=== PATIENT | male | born 1990 | race Caucasian/White ===

== ENCOUNTER 2019-09-25 13:58 | Inpatient (IN) | payer BC, MEDICAID ==
[~2019-09-25] VITALS: Ht 190.5 cm; Wt 135.8 kg
[2019-09-25] MEDS ORDERED: LORazepam 2 MG/ML, 1ML ONE ×2 (14:21→19:47)
[2019-09-25] MEDS: LORazepam 2 MG/ML, 1ML IVPush PRN ×2 (14:27→19:52)
--- NOTE | 2019-09-25 14:28 | NUR ---
IV ESTABLISHED AND PT MEDICATED WITH ATIVAN, IVF INFUSING. LAB AT BEDSIDE. CALL LIGHT WITHIN REACH. WILL RECHECK PT IN 10 MIN FOR SANDRO AND ADMINISTER MORE MEDICATION IF NEEDED.
[2019-09-25] MEDS ORDERED: SODIUM CHLORIDE FLUSH 10ML SYR IVF ONE (14:30)
[2019-09-25] MEDS ORDERED: THIAMINE 200 MG in SODIUM CHLORIDE 0.9% 50 ML IV ONE (14:30)
[2019-09-25] MEDS ORDERED: SODIUM CHLORIDE 0.9% 1,000ML IVBOLUS ONE (14:30)
[2019-09-25 14:44] LABS: INTERNATIONAL NORMALIZED RATIO 1.22 (0.93-1.1); PROTHROMBIN TIME 12.7 Seconds (9.6-11.5)
[2019-09-25 14:47] LABS: ALANINE AMINOTRANSFERASE 81 U/L (12-78); ALBUMIN 3.1 g/dL (3.4-5.0); ANION GAP 10 mmol/L (5-15); CALCIUM 7.8 mg/dL (8.5-10.1); CHLORIDE 101 mmol/L (98-107)
[2019-09-25 14:50] LABS: ALKALINE PHOSPHATASE 268 U/L (45-117); BILIRUBIN,TOTAL 3.8 mg/dL (0.2-1.0); CREATININE 0.65 mg/dL (0.7-1.3); TOTAL PROTEIN 7.9 g/dL (6.4-8.2)
[2019-09-25 14:51] LABS: ACETONE, SERUM Negative (Negative)
--- NOTE | 2019-09-25 14:55 | NUR ---
TASK RN: PT RESTING ON ARTIE. KAREY. VSS. MEDICATED PER NOV. SZ PRECAUTIONS APPLIED.
[2019-09-25 15:19] LABS: MEAN CORPUSCULAR HEMOGLOBIN 39.4 pg (27.5-34.5); MEAN CORPUSCULAR HGB CONC 33.5 g/dL (33.2-36.2); MEAN CORPUSCULAR VOLUME 117.6 fL (81-97); MEAN PLATELET VOLUME 7.3 fL (7.4-10.4); PLATELET COUNT 79 x10^3/uL (130-400); RED BLOOD COUNT 4.02 x10^6/uL (4.38-5.82)
[2019-09-25 15:40] LABS: MD YES
[2019-09-25 15:43] LABS: BAND#(MANUAL) 0.31 x10^3/uL; BANDS%(MANUAL) 3 % (0-7); EOS% (MANUAL) 1 % (1-7); LYMPH#(MANUAL) 0.94 x10^3/uL (1-3.4); LYMPHS% (MANUAL) 9 % (22-44); MONOS#(MANUAL) 0.42 x10^3/uL (0.3-2.7); MONOS% (MANUAL) 4 % (2-9); SEG#(MANUAL) 8.63 x10^3/uL (1.8-6.8); SEGS% (MANUAL) 83 % (42-75)
[2019-09-25 15:44] LABS: <RBC MORPHOLOGY> NORMAL
[2019-09-25 15:46] LABS: TARGET CELLS 1+
[2019-09-25 15:47] LABS: <PLATELET ESTIMATE> DECREASED; <PLT MORPHOLOGY> NORMAL PLT MORPH
--- NOTE | 2019-09-25 15:49 | NUR ---
PT SLEEPING IN RHALLS ON 4L NC, EQUAL CHEST RISE AND FALL. ORDERD BANANA BAG. PT TO BE ADMITTED.
[2019-09-25] MEDS ORDERED: MAGNESIUM SULFATE 3 GM, THIAMINE 100 MG, FOLIC ACID 1 MG, MVI ADULT 10 ML in SODIUM CHL... IV ONE (16:00)
--- NOTE | 2019-09-25 16:50 | NUR ---
PER DR SORIANO CANCEL DUPLICATE ORDER OF THIAMINE AND BANANA BAG, HOLD LIBRIUM UNTIL PT LESS LETHARGIC. PRN ATIVAN ORDERED FOR SANDRO.
[2019-09-25] MEDS ORDERED: DOCUSATE 100 MG CAPSULE PO PRN (17:00)
[2019-09-25] MEDS: NICOTINE 14MG/24 HR PATCH.TD24 TD SCH (17:00)
[2019-09-25] MEDS ORDERED: LORazepam 2 MG/ML, 1ML IV PRN ×2 (17:00)
[2019-09-25] MEDS ORDERED: POLYETHYLENE GLYCOL 17 GM PACKET PO PRN (17:00)
[2019-09-25] MEDS ORDERED: LORazepam 0.5MG TABLET PO PRN (17:00)
[2019-09-25] MEDS ORDERED: LORazepam 1MG TABLET PO PRN ×4 (17:00)
[2019-09-25] MEDS ORDERED: BISACODYL 10 MG SUPP PR PRN (17:00)
[2019-09-25] MEDS ORDERED: THIAMINE 200 MG, MVI ADULT 10 ML, FOLIC ACID 1 MG in D5%-0.9% NACL 1,000 ML IV SCH (17:00)
[2019-09-25] MEDS ORDERED: CHLORDIAZEPOXIDE 25 MG CAPSULE PO SCH ×2 (17:00)
--- NOTE | 2019-09-25 17:54 | NUR ---
PT RESTING IN GURNEY, STILL SLEEPING. AWAITING BED ASSIGNMENT. PT ON MONITOR, CALL LIGHT WITHIN REACH.
--- NOTE | 2019-09-25 18:59 | NUR ---
REPORT FROM RAYRAY MORGAN
[2019-09-25] MEDS ORDERED: PROMETHAZINE 25 MG/ML, 1ML ONE (19:23)
[2019-09-25] MEDS: PROMETHAZINE 25 MG/ML, 1ML IM PRN (19:26)
--- NOTE | 2019-09-25 19:32 | NUR ---
PT REPORTING NAUSEA, AND DRY HEAVING. PT MEDICATED PER MAR
--- NOTE | 2019-09-25 19:52 | NUR ---
PT STS FEELING LIKE HE IS STARTING TO WITHDRAWL MORE, FEELING SHAKEY AND A HEADACHE WITH NAUSEA. PT MEDICATED PER MAR. VSS
[2019-09-25 20:43] VITALS: BP 129/77
[2019-09-25] MEDS: PANTOPRAZOLE 40 MG IV IVPush SCH (21:26)
[2019-09-25] MEDS: LORazepam 2 MG/ML, 1ML IV PRN (21:26)
[2019-09-25] MEDS: CHLORDIAZEPOXIDE 25 MG CAPSULE PO SCH (22:54)
[2019-09-26 00:06] VITALS: BP 138/79
[2019-09-26] MEDS: LORazepam 2 MG/ML, 1ML IV PRN ×11 (00:56→23:01)
[2019-09-26] MEDS: PROMETHAZINE 25 MG/ML, 1ML IM PRN ×3 (03:52→11:57)
[2019-09-26] MEDS: CHLORDIAZEPOXIDE 25 MG CAPSULE PO SCH ×4 (05:20→20:03)
[2019-09-26 05:57] LABS: MD YES; MEAN CORPUSCULAR HEMOGLOBIN 40.3 pg (27.5-34.5); MEAN CORPUSCULAR HGB CONC 33.8 g/dL (33.2-36.2); MEAN CORPUSCULAR VOLUME 119.4 fL (81-97); MEAN PLATELET VOLUME 7.3 fL (7.4-10.4); PLATELET COUNT 64 x10^3/uL (130-400); RED BLOOD COUNT 3.63 x10^6/uL (4.38-5.82); RED CELL DISTRIBUTION WIDTH 16.2 % (9.4-14.8)
[2019-09-26 05:59] LABS: ANISOCYTOSIS 1+; BANDS%(MANUAL) 6 % (0-7); EOS#(MANUAL) 0.12 x10^3/uL (0.0-0.4); EOS% (MANUAL) 1 % (1-7); LYMPHS% (MANUAL) 6 % (22-44); MONOS#(MANUAL) 0.46 x10^3/uL (0.3-2.7); MONOS% (MANUAL) 4 % (2-9); SEG#(MANUAL) 9.63 x10^3/uL (1.8-6.8); SEGS% (MANUAL) 83 % (42-75)
[2019-09-26 06:00] LABS: <PLATELET ESTIMATE> DECREASED; <PLT MORPHOLOGY> NORMAL PLT MORPH
[2019-09-26 06:41] LABS: ALANINE AMINOTRANSFERASE 68 U/L (12-78); ANION GAP 10 mmol/L (5-15); CALCIUM 7.9 mg/dL (8.5-10.1); CHLORIDE 102 mmol/L (98-107); CREATININE 0.63 mg/dL (0.7-1.3)
[2019-09-26 07:08] LABS: ALKALINE PHOSPHATASE 229 U/L (45-117); BILIRUBIN,TOTAL 4.3 mg/dL (0.2-1.0); TOTAL PROTEIN 7.4 g/dL (6.4-8.2)
[2019-09-26] MEDS ORDERED: CALCIUM GLUCONATE 4.6 MEQ in SODIUM CHLORIDE 0.9% 50 ML IV ONE (07:30)
[2019-09-26] MEDS: PANTOPRAZOLE 40 MG IV IVPush SCH ×2 (08:02→22:00)
[2019-09-26 08:37] VITALS: BP 171/108
[2019-09-26 09:11] VITALS: BP 147/91
[2019-09-26] MEDS: THIAMINE 200 MG, MVI ADULT 10 ML, FOLIC ACID 1 MG in D5%-0.9% NACL 1,000 ML IV SCH (10:36)
[2019-09-26 14:21] VITALS: BP 143/89
[2019-09-26] MEDS: NICOTINE 14MG/24 HR PATCH.TD24 TD SCH (16:00)
[2019-09-26 19:48] VITALS: BP 150/92
[2019-09-27] MEDS: LORazepam 2 MG/ML, 1ML IV PRN ×6 (00:50→12:19)
[2019-09-27 01:16] VITALS: BP 130/82
[2019-09-27] MEDS: CHLORDIAZEPOXIDE 25 MG CAPSULE PO SCH ×4 (01:46→20:03)
[2019-09-27] MEDS ORDERED: CHLORDIAZEPOXIDE 25 MG CAPSULE PO PRN (03:30)
[2019-09-27 06:09] LABS: MEAN CORPUSCULAR HEMOGLOBIN 40.1 pg (27.5-34.5); MEAN CORPUSCULAR HGB CONC 34.1 g/dL (33.2-36.2); MEAN CORPUSCULAR VOLUME 117.7 fL (81-97); MEAN PLATELET VOLUME 7.9 fL (7.4-10.4); PLATELET COUNT 54 x10^3/uL (130-400); RED CELL DISTRIBUTION WIDTH 16.3 % (9.4-14.8)
[2019-09-27 06:18] LABS: ALBUMIN 3.1 g/dL (3.4-5.0); ANION GAP 9 mmol/L (5-15); CALCIUM 8.2 mg/dL (8.5-10.1); CHLORIDE 104 mmol/L (98-107); CREATININE 0.83 mg/dL (0.7-1.3)
[2019-09-27 06:20] VITALS: BP 163/93
[2019-09-27 06:47] LABS: BASOPHILS # (AUTO) 0.01 x10^3/uL (0-0.1); BASOPHILS % (AUTO) 0 % (0-1); EOSINOPHILS # (AUTO) 0.07 x10^3/uL (0-0.4); EOSINOPHILS % (AUTO) 1 % (1-7); LYMPHOCYTES # (AUTO) 0.55 x10^3/uL (1-3.4); LYMPHOCYTES % (AUTO) 5 % (22-44); MD SCAN; MONOCYTES # (AUTO) 0.55 x10^3/uL (0.2-0.8); MONOCYTES % (AUTO) 5 % (2-9); NEUTROPHILS # (AUTO) 9.11 x10^3/uL (1.8-6.8); NEUTROPHILS % (AUTO) 89 % (42-75)
[2019-09-27] MEDS ORDERED: POTASSIUM PHOSPHATE 44 MEQ in SODIUM CHLORIDE 0.9% 500 ML IV ONE (07:00)
[2019-09-27 07:47] LABS: FREE T4 (FREE THYROXINE) 1.83 ng/dL (0.76-1.46)
[2019-09-27] MEDS: PANTOPRAZOLE 40 MG IV IVPush SCH ×2 (08:21→21:54)
[2019-09-27] MEDS: CALCIUM/VITAMIN D3 250-125 TABLET PO SCH ×2 (08:21→21:54)
[2019-09-27] MEDS: NICOTINE 14MG/24 HR PATCH.TD24 TD SCH (08:22)
[2019-09-27 11:58] VITALS: BP 168/103
[2019-09-27] MEDS: THIAMINE 200 MG, MVI ADULT 10 ML, FOLIC ACID 1 MG in D5%-0.9% NACL 1,000 ML IV SCH (17:29)
[2019-09-27 19:42] VITALS: BP 139/91
[2019-09-28 01:00] VITALS: BP 145/90
[2019-09-28] MEDS: CHLORDIAZEPOXIDE 25 MG CAPSULE PO SCH ×3 (01:48→14:09)
[2019-09-28] MEDS: LORazepam 2 MG/ML, 1ML IV PRN (05:24)
[2019-09-28 06:16] LABS: CHLORIDE 100 mmol/L (98-107)
[2019-09-28 06:17] LABS: MEAN CORPUSCULAR HEMOGLOBIN 40.7 pg (27.5-34.5); MEAN CORPUSCULAR HGB CONC 34.5 g/dL (33.2-36.2); MEAN CORPUSCULAR VOLUME 117.9 fL (81-97); MEAN PLATELET VOLUME 8.8 fL (7.4-10.4); PLATELET COUNT 59 x10^3/uL (130-400); RED BLOOD COUNT 3.57 x10^6/uL (4.38-5.82); RED CELL DISTRIBUTION WIDTH 15.9 % (9.4-14.8)
[2019-09-28 06:24] LABS: ANION GAP 11 mmol/L (5-15); CALCIUM 8.5 mg/dL (8.5-10.1)
[2019-09-28 06:25] VITALS: BP 162/98
[2019-09-28 06:27] VITALS: BP 152/107
[2019-09-28 06:46] LABS: BASOPHILS # (AUTO) 0.02 x10^3/uL (0-0.1); BASOPHILS % (AUTO) 0 % (0-1); EOSINOPHILS # (AUTO) 0.19 x10^3/uL (0-0.4); EOSINOPHILS % (AUTO) 2 % (1-7); LYMPHOCYTES % (AUTO) 6 % (22-44); MD SCAN; MONOCYTES # (AUTO) 0.53 x10^3/uL (0.2-0.8); MONOCYTES % (AUTO) 5 % (2-9); NEUTROPHILS % (AUTO) 87 % (42-75)
[2019-09-28] MEDS: CALCIUM/VITAMIN D3 250-125 TABLET PO SCH (07:38)
[2019-09-28] MEDS: PANTOPRAZOLE 40 MG IV IVPush SCH (07:39)
[2019-09-28] MEDS: NICOTINE 14MG/24 HR PATCH.TD24 TD SCH (07:39)
[2019-09-28] MEDS: PROMETHAZINE 25 MG/ML, 1ML IM PRN (07:39)
[2019-09-28] MEDS ORDERED: CHLORHEXIDINE 15 ML UDC MM SCH (10:00)
[2019-09-28 12:40] VITALS: BP 140/89
[2019-09-28] MEDS ORDERED: CHLO25CA9 PO (15:01)
[2019-09-28] MEDS ORDERED: GABA100C PO (15:01)
== END 2019-09-28 17:20 | disposition home or self-care (01) | DRG 433 ==
LOC: ED 15:46 → EDIP 15:47 → SUATTDRO 16:25 → ED 16:26 → 4EST 20:39
PROVIDERS: ADMIT Internal Medicine; ATTEND Family Medicine
DX: K70.10 Alcoholic hepatitis without ascites (principal); F10.231 Alcohol dependence with withdrawal delirium; F10.229 Alcohol dependence with intoxication, unspecified; D69.6 Thrombocytopenia, unspecified; D75.89 Other specified diseases of blood and blood-forming organs; E83.42 Hypomagnesemia; E83.51 Hypocalcemia; F12.90 Cannabis use, unspecified, uncomplicated; F17.210 Nicotine dependence, cigarettes, uncomplicated; K05.10 Chronic gingivitis, plaque induced; R94.31 Abnormal electrocardiogram [ECG] [EKG]; Z83.3 Family history of diabetes mellitus; Z82.49 Family history of ischemic heart disease and other diseases of the circulatory system
CPT/HCPCS: 36415; 96365; 96366; 96367; 99285; J7042; 71045; 80053; 80069; 80307; 82010; 82607; 83690; 83735; 84100; 84439; 84443; 84481; 85014; 85018; 85025; 85610; 93005; 95819; G0378; J0610; J2550; J3411; J3475; C9113; J2060; J7030; J7040

== ENCOUNTER 2019-10-12 18:23 | Inpatient (IN) | payer MEDICAID ==
[~2019-10-12] VITALS: Ht 190.5 cm; Wt 150.9 kg
[~2019-10-12 18:23] MED LIST: CHLO25CA9 PO; GABA100C PO
[2019-10-12] MEDS ORDERED: SODIUM CHLORIDE 0.9% 1,000ML IVBOLUS ONE (18:30)
[2019-10-12] MEDS ORDERED: SODIUM CHLORIDE FLUSH 10ML SYR IVF ONE (18:30)
[2019-10-12] MEDS ORDERED: THIAMINE 100 MG in SODIUM CHLORIDE 0.9% 50 ML IVPB ONE (18:30)
[2019-10-12] MEDS ORDERED: SODIUM CHLORIDE 0.9% 1,000 ML IV ONE (18:30)
[2019-10-12 18:45] LABS: MEAN CORPUSCULAR HEMOGLOBIN 38.7 pg (27.5-34.5); MEAN CORPUSCULAR HGB CONC 35.2 g/dL (33.2-36.2); MEAN CORPUSCULAR VOLUME 110.1 fL (81-97); MEAN PLATELET VOLUME 6.8 fL (7.4-10.4); PLATELET COUNT 291 x10^3/uL (130-400); RED BLOOD COUNT 3.52 x10^6/uL (4.38-5.82)
[2019-10-12 18:51] LABS: INTERNATIONAL NORMALIZED RATIO 2.44 (0.93-1.1); PROTHROMBIN TIME 26.1 Seconds (9.6-11.5)
[2019-10-12] MEDS ORDERED: PIPERACILLIN/TAZO/PMX 3.375GM 50 ML IVPB ONE (19:00)
[2019-10-12] MEDS ORDERED: CEFTRIAXONE PMX 1GM/50ML 50 ML IVPB ONE (19:00)
[2019-10-12 19:01] LABS: MD YES
[2019-10-12 19:04] LABS: ANISOCYTOSIS 1+; BAND#(MANUAL) 10.24 x10^3/uL; BANDS%(MANUAL) 23 % (0-7); LYMPH#(MANUAL) 0.89 x10^3/uL (1-3.4); LYMPHS% (MANUAL) 2 % (22-44); MONOS#(MANUAL) 2.23 x10^3/uL (0.3-2.7); MONOS% (MANUAL) 5 % (2-9); SEG#(MANUAL) 31.15 x10^3/uL (1.8-6.8); SEGS% (MANUAL) 70 % (42-75); TARGET CELLS 1+
[2019-10-12 19:05] LABS: <PLATELET ESTIMATE> ADEQUATE; <PLT MORPHOLOGY> NORMAL PLT MORPH; TOXIC GRAN 1+
[2019-10-12] MEDS ORDERED: PIPERACILLIN/TAZO/PMX 3.375GM 50 ML ONE (19:18)
[2019-10-12] MEDS ORDERED: CEFTRIAXONE PMX 1GM/50ML 50 ML ONE (19:18)
[2019-10-12 19:19] LABS: ALANINE AMINOTRANSFERASE 59 U/L (12-78); ALBUMIN 1.8 g/dL (3.4-5.0); ANION GAP 16 mmol/L (5-15); CALCIUM 7.6 mg/dL (8.5-10.1); CHLORIDE 71 mmol/L (98-107)
[2019-10-12 19:30] LABS: ALKALINE PHOSPHATASE 229 U/L (45-117)
--- NOTE | 2019-10-12 19:30 | NUR ---
Note undone in EDM - 10/12/19 at 1932 by ESPERANZA PT PRESENTS TO THE ER WITH PRONOUNCED JAUNDICE, WEAKNESS, LETHARGY, BILATERAL LOWER EDEMA, AND FEELS SHORT OF BREATH. EJ STARTED, LABS DRAWN AND SENT. ERP AT BEDSIDE. KEILA, PT CALLED FOR UPDATED. PT VERBALLY RELEASED HER FOR INFORMATION. KEILA - [phone]
[2019-10-12 19:34] LABS: CREATININE 1.86 mg/dL (0.7-1.3)
[2019-10-12 19:41] LABS: BILIRUBIN,TOTAL 30.4 mg/dL (0.2-1.0)
[2019-10-12 19:42] LABS: TOTAL PROTEIN 5.4 g/dL (6.4-8.2)
[2019-10-12] MEDS ORDERED: SODIUM CHLORIDE FLUSH 10ML SYR IVF PRN (20:00)
--- NOTE | 2019-10-12 20:40 | NUR ---
REPORT CALLED TO RECEIVING RN.
--- NOTE | 2019-10-12 20:51 | NUR ---
PT DISLODGED HUB OF EJ LINE, LOST APPROX 50ML OF BLOOD. NEW HUB SECURED, TEGADERM REINFORCED AND SECURED WITH NO STING AND EXTRA TAPE. PT TRANSPORTED OFF FLOOR AT THIS TIME.
[2019-10-12] MEDS ORDERED: GLUCAGON 1 MG IM PRN (21:00)
[2019-10-12] MEDS ORDERED: DEXTROSE 4 GM TAB.CHEW PO PRN (21:00)
[2019-10-12] MEDS ORDERED: DEXTROSE 50%, 50ML SYRINGE IVPush PRN (21:00)
[2019-10-12] MEDS ORDERED: ONDANSETRON 2MG/ML, 2ML IVPush PRN (21:00)
[2019-10-12] MEDS ORDERED: PHARMACY MAY ADJ FOR RENAL FX MC PRN (21:00)
[2019-10-12] MEDS ORDERED: SODIUM CHLORIDE 3% 500 ML IV PRN ×2 (21:00→23:45)
[2019-10-12] MEDS ORDERED: morphine SULFATE 10 MG/ML, 1ML IVPush PRN (21:00)
[2019-10-12] MEDS ORDERED: THIAMINE 100 MG in SODIUM CHLORIDE 0.9% 50 ML IV SCH (21:00)
[2019-10-12] MEDS ORDERED: VANCOMYCIN PER PHARMACY MC PRN (21:00)
[2019-10-12] MEDS ORDERED: PHARMACOKINETIC CONSULTATION MC ONE (22:00)
[2019-10-12] MEDS ORDERED: PHARMACOKINETIC MONITORING MC PRN (22:00)
[2019-10-12 22:12] LABS: MICROSCOPIC INDICATED
[2019-10-12 22:21] LABS: AMPHETAMINE SCREEN, URINE Negative (Negative); BARBITURATE SCREEN, URINE Negative (Negative); BENZODIAZEPINE SCREEN, URINE Positive (Negative); CANNABINOID SCREEN, URINE Positive (Negative); COCAINE SCREEN, URINE Negative (Negative); CULTURE INDICATED? NO; METHADONE SCREEN, URINE Negative (Negative); OPIATE SCREEN, URINE Negative (Negative); POTASSIUM,URINE RANDOM 37 mmol/L; SODIUM,URINE RANDOM 6 mmol/L
[2019-10-12 22:22] LABS: CHLORIDE,URINE RANDOM < 10 mmol/L
[2019-10-12] MEDS: PANTOPRAZOLE 40 MG IV IVPush SCH (22:30)
[2019-10-12] MEDS: SODIUM CHLORIDE FLUSH 10ML SYR IVF SCH (22:30)
[2019-10-12] MEDS: VANCOMYCIN 2,200 MG in SODIUM CHLORIDE 0.9% 500 ML IV SCH (22:31)
[2019-10-12 23:17] LABS: ANION GAP 11 mmol/L (5-15); CALCIUM 7.8 mg/dL (8.5-10.1); CHLORIDE 74 mmol/L (98-107)
[2019-10-12 23:24] LABS: CREATININE 2.05 mg/dL (0.7-1.3)
[2019-10-13] MEDS ORDERED: CALCIUM GLUCONATE 9.2 MEQ in SODIUM CHLORIDE 0.9% 100 ML IV ONE
[2019-10-13] MEDS: LACTULOSE 10 GM/15 ML UDC PO SCH ×4 (00:43→21:47)
[2019-10-13] MEDS: PIPERACILLIN/TAZO/PMX 3.375GM 50 ML IV SCH ×4 (02:13→23:08)
[2019-10-13 04:00] VITALS: BP 130/75
[2019-10-13 06:22] LABS: MEAN CORPUSCULAR HEMOGLOBIN 38.7 pg (27.5-34.5); MEAN CORPUSCULAR HGB CONC 35.1 g/dL (33.2-36.2); MEAN CORPUSCULAR VOLUME 110.5 fL (81-97); MEAN PLATELET VOLUME 6.9 fL (7.4-10.4); PLATELET COUNT 226 x10^3/uL (130-400); RED BLOOD COUNT 3.44 x10^6/uL (4.38-5.82)
[2019-10-13 06:34] LABS: ALBUMIN 1.8 g/dL (3.4-5.0); ANION GAP 14 mmol/L (5-15); CALCIUM 7.5 mg/dL (8.5-10.1); CHLORIDE 77 mmol/L (98-107)
[2019-10-13 06:36] LABS: MD YES
[2019-10-13 06:38] LABS: LYMPH#(MANUAL) 0.44 x10^3/uL (1-3.4); LYMPHS% (MANUAL) 1 % (22-44); METAMYELOCYTES# (MANUAL) 0.44 x10^3/uL (0-0); METAMYELOCYTES% (MANUAL) 1 % (0-1); MONOS#(MANUAL) 1.76 x10^3/uL (0.3-2.7); MONOS% (MANUAL) 4 % (2-9)
[2019-10-13 06:40] LABS: BANDS%(MANUAL) 13 % (0-7)
[2019-10-13 06:41] LABS: BAND#(MANUAL) 5.73 x10^3/uL; SEGS% (MANUAL) 81 % (42-75)
[2019-10-13 06:43] LABS: <PLATELET ESTIMATE> ADEQUATE; <PLT MORPHOLOGY> NORMAL PLT MORPH; PMNS WITH VACUOLES 1+; TOXIC GRAN 2+
[2019-10-13 06:44] LABS: TARGET CELLS 1+
[2019-10-13 06:46] LABS: ALANINE AMINOTRANSFERASE 60 U/L (12-78); ALKALINE PHOSPHATASE 216 U/L (45-117)
[2019-10-13 06:49] LABS: INTERNATIONAL NORMALIZED RATIO 2.2 (0.93-1.1); PROTHROMBIN TIME 23.5 Seconds (9.6-11.5)
[2019-10-13 06:49] LABS: CREATININE 2.06 mg/dL (0.7-1.3); TOTAL PROTEIN 5.1 g/dL (6.4-8.2)
[2019-10-13 06:50] LABS: BILIRUBIN,TOTAL 30.6 mg/dL (0.2-1.0)
[2019-10-13] MEDS: ALBUMIN HUMAN 25% 100 ML IV SCH ×3 (07:51→23:45)
[2019-10-13] MEDS: SODIUM CHLORIDE FLUSH 10ML SYR IVF SCH ×2 (07:54→21:41)
[2019-10-13] MEDS: PANTOPRAZOLE 40 MG IV IVPush SCH ×2 (07:54→17:13)
[2019-10-13] MEDS ORDERED: SODIUM CHLORIDE 3% 500 ML IV PRN (11:00)
[2019-10-13 13:42] LABS: ANA SCREEN POSITIVE (Negative)
[2019-10-13 13:43] LABS: ANTI-NUCLEAR ANTIBODY PATTERN SPECKLED
[2019-10-13 13:49] LABS: OSMOLALITY,URINE 288 mOsm/kg (500-850)
[2019-10-13] MEDS: VANCOMYCIN 2,200 MG in SODIUM CHLORIDE 0.9% 500 ML IV SCH (17:14)
[2019-10-13] MEDS: THIAMINE 200 MG in SODIUM CHLORIDE 0.9% 50 ML IV SCH (21:41)
[2019-10-14 04:00] VITALS: BP 113/62
[2019-10-14] MEDS: PIPERACILLIN/TAZO/PMX 3.375GM 50 ML IV SCH ×4 (04:35→22:35)
[2019-10-14 04:48] LABS: MEAN CORPUSCULAR HEMOGLOBIN 38.7 pg (27.5-34.5); MEAN CORPUSCULAR HGB CONC 34.9 g/dL (33.2-36.2); MEAN CORPUSCULAR VOLUME 111.1 fL (81-97); MEAN PLATELET VOLUME 7.3 fL (7.4-10.4); PLATELET COUNT 199 x10^3/uL (130-400); RED BLOOD COUNT 3.34 x10^6/uL (4.38-5.82); RED CELL DISTRIBUTION WIDTH 16.5 % (9.4-14.8)
[2019-10-14 04:57] LABS: INTERNATIONAL NORMALIZED RATIO 2.3 (0.93-1.1); PROTHROMBIN TIME 24.6 Seconds (9.6-11.5)
[2019-10-14 05:01] LABS: ALBUMIN 2.3 g/dL (3.4-5.0); CALCIUM 7.5 mg/dL (8.5-10.1); CHLORIDE 81 mmol/L (98-107)
[2019-10-14 05:07] LABS: ANION GAP 13 mmol/L (5-15)
[2019-10-14 05:13] LABS: ALANINE AMINOTRANSFERASE 60 U/L (12-78); ALKALINE PHOSPHATASE 192 U/L (45-117)
[2019-10-14 05:17] LABS: TOTAL PROTEIN 5.2 g/dL (6.4-8.2)
[2019-10-14 05:20] LABS: BILIRUBIN,TOTAL 32.7 mg/dL (0.2-1.0)
[2019-10-14 05:31] LABS: MD YES
[2019-10-14 05:33] LABS: <PLATELET ESTIMATE> ADEQUATE; <PLT MORPHOLOGY> NORMAL PLT MORPH; BAND#(MANUAL) 0.85 x10^3/uL; BANDS%(MANUAL) 2 % (0-7); EOS#(MANUAL) 0.42 x10^3/uL (0.0-0.4); EOS% (MANUAL) 1 % (1-7); LYMPH#(MANUAL) 0.42 x10^3/uL (1-3.4); LYMPHS% (MANUAL) 1 % (22-44); MONOS#(MANUAL) 2.54 x10^3/uL (0.3-2.7); MONOS% (MANUAL) 6 % (2-9); SEG#(MANUAL) 38.16 x10^3/uL (1.8-6.8); SEGS% (MANUAL) 90 % (42-75)
[2019-10-14] MEDS ORDERED: FUROSEMIDE 40 MG/4 ML IV ONE (08:30)
[2019-10-14] MEDS ORDERED: SODIUM CHLORIDE 3% 500 ML IV PRN ×3 (08:30→14:30)
[2019-10-14] MEDS: PANTOPRAZOLE 40 MG IV IVPush SCH ×2 (08:47→16:07)
[2019-10-14] MEDS: ALBUMIN HUMAN 25% 100 ML IV SCH ×3 (08:47→23:25)
[2019-10-14] MEDS: SODIUM CHLORIDE FLUSH 10ML SYR IVF SCH ×2 (08:48→21:12)
[2019-10-14] MEDS: LACTULOSE 10 GM/15 ML UDC PO SCH ×3 (09:00→21:00)
[2019-10-14] MEDS: PHYTONADIONE 10 MG/ML, 1ML SQ SCH (09:00)
--- NOTE | 2019-10-14 11:18 | NUR ---
TF GOAL if needed: OSMOLITE 1.2 @ 85ML/HR
[2019-10-14 13:57] LABS: OCCULT BLOOD POSITIVE (NEGATIVE)
[2019-10-14] MEDS: THIAMINE 200 MG in SODIUM CHLORIDE 0.9% 50 ML IV SCH (21:13)
[2019-10-15] MEDS ORDERED: SODIUM CHLORIDE 3% 500 ML IV PRN (03:00)
[2019-10-15 04:00] VITALS: BP 135/64
[2019-10-15] MEDS: PIPERACILLIN/TAZO/PMX 3.375GM 50 ML IV SCH ×4 (04:47→22:16)
[2019-10-15] MEDS ORDERED: POTASSIUM CHLORIDE 40 MEQ in SODIUM CHLORIDE 0.9% 100 ML IV ONE (07:00)
[2019-10-15 07:56] LABS: MEAN CORPUSCULAR HEMOGLOBIN 38.3 pg (27.5-34.5); MEAN CORPUSCULAR HGB CONC 34.8 g/dL (33.2-36.2); MEAN CORPUSCULAR VOLUME 109.9 fL (81-97); PLATELET COUNT 161 x10^3/uL (130-400); RED BLOOD COUNT 3.16 x10^6/uL (4.38-5.82); RED CELL DISTRIBUTION WIDTH 15.9 % (9.4-14.8)
[2019-10-15 08:12] LABS: ALBUMIN 2.5 g/dL (3.4-5.0); ANION GAP 15 mmol/L (5-15); CALCIUM 7.9 mg/dL (8.5-10.1); CHLORIDE 87 mmol/L (98-107)
[2019-10-15] MEDS: ALBUMIN HUMAN 25% 100 ML IV SCH ×2 (08:21→15:50)
[2019-10-15 08:24] LABS: ALANINE AMINOTRANSFERASE 55 U/L (12-78); ALKALINE PHOSPHATASE 168 U/L (45-117)
[2019-10-15] MEDS ORDERED: FUROSEMIDE 40 MG/4 ML ONE (08:28)
[2019-10-15 08:30] LABS: INTERNATIONAL NORMALIZED RATIO 1.88 (0.93-1.1); PROTHROMBIN TIME 20.1 Seconds (9.6-11.5)
[2019-10-15] MEDS ORDERED: FUROSEMIDE 100 MG/10 ML IV ONE (08:30)
[2019-10-15] MEDS: PANTOPRAZOLE 40 MG IV IVPush SCH ×2 (08:31→17:07)
[2019-10-15] MEDS: SODIUM CHLORIDE FLUSH 10ML SYR IVF SCH ×2 (08:32→21:16)
[2019-10-15] MEDS: LACTULOSE 10 GM/15 ML UDC PO SCH ×3 (08:32→21:16)
[2019-10-15] MEDS: PHYTONADIONE 10 MG/ML, 1ML SQ SCH (08:33)
[2019-10-15 08:38] LABS: CREATININE 3.57 mg/dL (0.7-1.3)
[2019-10-15 08:41] LABS: BILIRUBIN,TOTAL 36.1 mg/dL (0.2-1.0); TOTAL PROTEIN 5.3 g/dL (6.4-8.2)
[2019-10-15 08:56] LABS: MD YES
[2019-10-15 08:59] LABS: <PLATELET ESTIMATE> ADEQUATE; <PLT MORPHOLOGY> NORMAL PLT MORPH; BAND#(MANUAL) 1.71 x10^3/uL; BANDS%(MANUAL) 4 % (0-7); EOS#(MANUAL) 0.43 x10^3/uL (0.0-0.4); EOS% (MANUAL) 1 % (1-7); LYMPH#(MANUAL) 0.85 x10^3/uL (1-3.4); LYMPHS% (MANUAL) 2 % (22-44); MONOS#(MANUAL) 1.28 x10^3/uL (0.3-2.7); MONOS% (MANUAL) 3 % (2-9); SEG#(MANUAL) 38.43 x10^3/uL (1.8-6.8); SEGS% (MANUAL) 90 % (42-75)
[2019-10-15 09:00] LABS: PMNS WITH VACUOLES 1+; TOXIC GRAN 2+
[2019-10-15] MEDS ORDERED: POTASSIUM CHLORIDE 20 MEQ TAB.ER.PRT PO ONE (09:00)
[2019-10-15] MEDS ORDERED: POTASSIUM CHLORIDE 10% 40 MEQ/30 ML UDC PO ONE (14:30)
[2019-10-15] MEDS: THIAMINE 200 MG in SODIUM CHLORIDE 0.9% 50 ML IV SCH (21:16)
[2019-10-16] MEDS: ALBUMIN HUMAN 25% 100 ML IV SCH ×4 (00:31→22:49)
[2019-10-16] MEDS: PIPERACILLIN/TAZO/PMX 3.375GM 50 ML IV SCH ×2 (04:46→10:00)
[2019-10-16 04:47] VITALS: BP 136/65
[2019-10-16 05:54] LABS: INTERNATIONAL NORMALIZED RATIO 1.69 (0.93-1.1)
[2019-10-16 06:11] LABS: CALCIUM 8.1 mg/dL (8.5-10.1); CHLORIDE 88 mmol/L (98-107)
[2019-10-16 06:15] LABS: MEAN CORPUSCULAR HEMOGLOBIN 38.6 pg (27.5-34.5); MEAN CORPUSCULAR HGB CONC 35.1 g/dL (33.2-36.2); PLATELET COUNT 146 x10^3/uL (130-400); RED BLOOD COUNT 3.07 x10^6/uL (4.38-5.82); RED CELL DISTRIBUTION WIDTH 16.2 % (9.4-14.8)
[2019-10-16 06:28] LABS: ALANINE AMINOTRANSFERASE 56 U/L (12-78); ALBUMIN 2.9 g/dL (3.4-5.0); ALKALINE PHOSPHATASE 146 U/L (45-117); ANION GAP 14 mmol/L (5-15); VANCOMYCIN,RANDOM 19.6 mcg/mL
[2019-10-16 06:30] LABS: CREATININE 4.13 mg/dL (0.7-1.3)
[2019-10-16 06:34] LABS: BILIRUBIN,TOTAL 40.8 mg/dL (0.2-1.0)
[2019-10-16 06:43] LABS: TOTAL PROTEIN 5.3 g/dL (6.4-8.2)
[2019-10-16 07:09] LABS: MD YES
[2019-10-16 07:33] LABS: BAND#(MANUAL) 0.83 x10^3/uL; BANDS%(MANUAL) 2 % (0-7); MONOS#(MANUAL) 1.24 x10^3/uL (0.3-2.7); MONOS% (MANUAL) 3 % (2-9); SEG#(MANUAL) 39.24 x10^3/uL (1.8-6.8); SEGS% (MANUAL) 95 % (42-75)
[2019-10-16 07:34] LABS: <PLATELET ESTIMATE> ADEQUATE; <PLT MORPHOLOGY> NORMAL PLT MORPH; PMNS WITH VACUOLES 1+; TOXIC GRAN 2+
[2019-10-16] MEDS: PANTOPRAZOLE 40 MG IV IVPush SCH ×2 (08:16→16:25)
[2019-10-16] MEDS: LACTULOSE 10 GM/15 ML UDC PO SCH ×3 (08:16→21:23)
[2019-10-16] MEDS: PHYTONADIONE 10 MG/ML, 1ML SQ SCH (08:17)
[2019-10-16] MEDS: SODIUM CHLORIDE FLUSH 10ML SYR IVF SCH ×2 (08:17→21:23)
[2019-10-16] MEDS ORDERED: PROPOFOL 10 MG/ML, 100ML IV ONE (10:14)
[2019-10-16] MEDS ORDERED: ROCURONIUM 10MG/ML,5ML ONE (10:14)
[2019-10-16] MEDS ORDERED: ETOMIDATE 20 MG/10 ML ONE (10:14)
[2019-10-16] MEDS ORDERED: FUROSEMIDE 40 MG/4 ML IV ONE (10:30)
[2019-10-16] MEDS: POTASSIUM CHLORIDE 40 MEQ in SODIUM CHLORIDE 0.9% 100 ML IV SCH ×2 (10:40→21:56)
[2019-10-16] MEDS ORDERED: VANCOMYCIN 2,200 MG in SODIUM CHLORIDE 0.9% 500 ML IV SCH ×3 (11:00)
[2019-10-16] MEDS: PIPERACILLIN/TAZO/PMX 2.25GM 50 ML IVPB SCH (16:25)
[2019-10-16] MEDS: THIAMINE 200 MG in SODIUM CHLORIDE 0.9% 50 ML IV SCH (21:26)
[2019-10-16 23:02] LABS: O2 FLOW 4 L/min
[2019-10-17] MEDS ORDERED: FUROSEMIDE 40 MG/4 ML IV ONE (02:00)
[2019-10-17] MEDS: PIPERACILLIN/TAZO/PMX 2.25GM 50 ML IVPB SCH (02:03)
[2019-10-17 04:59] VITALS: BP 144/61
[2019-10-17 05:19] LABS: MEAN CORPUSCULAR HEMOGLOBIN 39.3 pg (27.5-34.5); MEAN CORPUSCULAR HGB CONC 35.7 g/dL (33.2-36.2); MEAN CORPUSCULAR VOLUME 110.1 fL (81-97); MEAN PLATELET VOLUME 7.4 fL (7.4-10.4); PLATELET COUNT 151 x10^3/uL (130-400); RED BLOOD COUNT 3.07 x10^6/uL (4.38-5.82); RED CELL DISTRIBUTION WIDTH 16.5 % (9.4-14.8)
[2019-10-17 05:31] LABS: ALBUMIN 3.2 g/dL (3.4-5.0); ANION GAP 13 mmol/L (5-15); CALCIUM 8.2 mg/dL (8.5-10.1); CHLORIDE 92 mmol/L (98-107)
[2019-10-17 05:49] LABS: ALANINE AMINOTRANSFERASE 60 U/L (12-78); ALKALINE PHOSPHATASE 145 U/L (45-117); CREATININE 4.92 mg/dL (0.7-1.3)
[2019-10-17 05:50] LABS: TOTAL PROTEIN 5.9 g/dL (6.4-8.2)
[2019-10-17 05:51] LABS: BILIRUBIN,TOTAL 43.7 mg/dL (0.2-1.0)
[2019-10-17 06:02] LABS: MD YES
[2019-10-17 06:04] LABS: BAND#(MANUAL) 1.93 x10^3/uL; BANDS%(MANUAL) 4 % (0-7); EOS#(MANUAL) 0.48 x10^3/uL (0.0-0.4); EOS% (MANUAL) 1 % (1-7); LYMPH#(MANUAL) 0.48 x10^3/uL (1-3.4); LYMPHS% (MANUAL) 1 % (22-44); MONOS#(MANUAL) 0.97 x10^3/uL (0.3-2.7); MONOS% (MANUAL) 2 % (2-9); SEG#(MANUAL) 44.44 x10^3/uL (1.8-6.8); SEGS% (MANUAL) 92 % (42-75)
[2019-10-17 06:07] LABS: <PLATELET ESTIMATE> ADEQUATE; <PLT MORPHOLOGY> NORMAL PLT MORPH; PMNS WITH VACUOLES 1+; TOXIC GRAN 2+
[2019-10-17] MEDS ORDERED: LACTULOSE 10 GM/15 ML UDC PO SCH (08:00)
[2019-10-17] MEDS ORDERED: MORPHINE SULFATE 4 MG/ML, 1ML IV PRN (10:00)
[2019-10-17] MEDS ORDERED: LORazepam 2 MG/ML, 1ML IV ONE ×2 (10:30)
[2019-10-17] MEDS ORDERED: ATROPINE OPHTH SOLN 1%, 2ML PO PRN (10:30)
[2019-10-17] MEDS ORDERED: MORPHINE SULFATE 4 MG/ML, 1ML IV ONE (10:30)
[2019-10-17] MEDS ORDERED: LORazepam 2 MG/ML, 1ML IV PRN ×2 (10:30)
[2019-10-17] MEDS ORDERED: SODIUM CHLORIDE FLUSH 10ML SYR IVF PRN (10:30)
[2019-10-17] MEDS ORDERED: SCOPOLAMINE PATCH, 1.5MG PATCH.TD72 TD PRN (10:30)
[2019-10-17] MEDS ORDERED: LORazepam 2 MG/ML, 1ML IVPush ONE (11:00)
== END 2019-10-17 15:10 | disposition expired | DRG 871 ==
LOC: ED 20:25 → EDIP 20:27 → CCU 20:58
PROVIDERS: ADMIT Family Medicine; ATTEND Internal Medicine
DX: A41.9 Sepsis, unspecified organism (principal); N17.0 Acute kidney failure with tubular necrosis; J96.01 Acute respiratory failure with hypoxia; G93.41 Metabolic encephalopathy; J15.6 Pneumonia due to other Gram-negative bacteria; E43 Unspecified severe protein-calorie malnutrition; K76.7 Hepatorenal syndrome; K72.00 Acute and subacute hepatic failure without coma; K76.6 Portal hypertension; J81.1 Chronic pulmonary edema; E87.1 Hypo-osmolality and hyponatremia; K92.2 Gastrointestinal hemorrhage, unspecified; D68.4 Acquired coagulation factor deficiency; N17.8 Other acute kidney failure; Z68.41 Body mass index [BMI] 40.0-44.9, adult; R65.20 Severe sepsis without septic shock; F17.210 Nicotine dependence, cigarettes, uncomplicated; E66.9 Obesity, unspecified; I10 Essential (primary) hypertension; F12.90 Cannabis use, unspecified, uncomplicated; K70.31 Alcoholic cirrhosis of liver with ascites; E87.6 Hypokalemia; E87.70 Fluid overload, unspecified; G40.909 Epilepsy, unspecified, not intractable, without status epilepticus; R76.8 Other specified abnormal immunological findings in serum; F10.20 Alcohol dependence, uncomplicated; D53.9 Nutritional anemia, unspecified; K70.11 Alcoholic hepatitis with ascites; Z83.3 Family history of diabetes mellitus; Z82.49 Family history of ischemic heart disease and other diseases of the circulatory system; Z91.018 Allergy to other foods; Z88.8 Allergy status to other drugs, medicaments and biological substances
CPT/HCPCS: 36415; 36573; 36600; 71045; 74018; 76700; 80048; 80053; 80074; 80202; 80307; 81001; 82103; 82140; 82272; 82330; 82390; 82436; 82533; 82570; 82607; 82803; 82962; 83516; 83605; 83690; 83735; 83880; 83935; 84100; 84133; 84295; 84300; 84443; 85025; 85610; 85730; 86038; 86039; 87040; 87070; 87081; 87205; 92950; 93005; 94002; 94003; 96365; G0378; J0610; J0696; J1940; J2543; J2704; J3370; J3411; J3430; J3480; P9047; C1751; C9113; J2060; J2270; J7030; J7040